=== PATIENT | male | born 1995 | race Caucasian/White ===

== ENCOUNTER 2022-07-30 14:52 | Emergency (ER) | payer BC ==
[~2022-07-30] VITALS: Ht 167.6 cm; Wt 65.8 kg
[2022-07-30 14:58] VITALS: BP 114/74
[2022-07-30] MEDS ORDERED: ACETAMINOPHEN EXTRA STRENGTH 500 MG TAB PO ONE (15:05)
[2022-07-30] MEDS ORDERED: IBUPROFEN 600 MG TAB PO ONE (15:05)
--- NOTE | 2022-07-30 15:15 | NUR ---
PT BROUGHT BACK FROM XRAY TO BED 6
--- NOTE | 2022-07-30 15:16 | NUR ---
PT BACK FROM RAD AND TAKEN TO ER BED 6
--- NOTE | 2022-07-30 15:35 | NUR ---
27YO MALE PT C/O PRESSURED L ANKLE PAIN X1WEEK. STATES "TWISTING" ANKLE WHILE PLAYING SOCCER. UNABLE TO BEAR WEIGHT AT THIS TIME. L ANKLE AND FOOT PRESENT WITH REDDENED SWELLING. CAP REFILL <3 THOUGHOUT, DENIES NUMBING OR LOSS OF SENSATION. PT AAOX4, SITTING BEDSIDE PER COMFORT HX: DENIES NKA
[2022-07-30] MEDS ORDERED: IBUP-2213 PO (16:18)
[2022-07-30 17:15] VITALS: BP 115/74
--- NOTE | 2022-07-30 17:15 | NUR ---
Patient discharged with v/s stable. Written and verbal after care instructions FOR ANKLE SPRAIN given and explained. Patient alert, oriented and verbalized understanding of instructions. Ambulatory USING CRUTCHES . All questions addressed prior to discharge. ID band removed. Patient advised to follow up with PMD. Rx of IBUPROFEN given. Opportunity to ask questions provided and answered.
== END 2022-07-30 17:15 | disposition home or self-care (01) ==
LOC: MED 14:52
DX: S93.492A Sprain of other ligament of left ankle, initial encounter (principal); X50.1XXA Overexertion from prolonged static or awkward postures, initial encounter; Y93.66 Activity, soccer; Y92.89 Other specified places as the place of occurrence of the external cause; Y99.8 Other external cause status
CPT/HCPCS: 29515; 73610; 99283